=== PATIENT | female | born 1945 | race Asian ===

== ENCOUNTER 2016-03-05 09:04 | Outpatient (CLI) | payer MEDICARE ==
[2016-03-05] MEDS ORDERED: ALBUTEROL NEB 2.5 MG/3 ML INH ONE (09:31)
== END 2016-03-05 09:05 | disposition home or self-care (01) ==
DX: J44.9 Chronic obstructive pulmonary disease, unspecified (principal); R06.00 Dyspnea, unspecified
CPT/HCPCS: 94060; J7613

== ENCOUNTER 2016-03-07 11:33 | Outpatient (CLI) | payer MEDICARE | END 2016-03-07 11:34 | disposition home or self-care (01) | DX: Z12.2 Encounter for screening for malignant neoplasm of respiratory organs (principal); F17.210 Nicotine dependence, cigarettes, uncomplicated ==

== ENCOUNTER 2020-08-02 11:01 | Outpatient (CLI) | payer MEDICARE, OTHER ==
[2020-08-02] MEDS ORDERED: IOVERSOL 320 100 ML VIAL IVP ONE ×2 (11:52→12:38)
[2020-08-02 11:55] LABS: CALCIUM 9.9 mg/dL (8.5-10.3); CREATININE 1.2 mg/dL (0.4-1.0); POTASSIUM 4.5 mmol/L (3.5-5.0)
--- NOTE | 2020-08-02 12:03 | DEXA Report ---
PROCEDURE: Dexa Spine and/or Hip INDICATIONS: SMOKER,POST MENOPAUSAL,RENAL MASS TECHNIQUE: Dual energy x-ray absorptiometry (DXA) was performed on a [employer] System. Regions measur ed are the AP Spine, femoral neck, and if needed forearm. COMPARISON: None. FINDINGS: Lumbar Spine: Bone Mineral Density 1.337 g/cm/cm,T score 1.3. Left Hip: Bone Mineral Density 1.050 g/cm/cm,T score 0.3. Left Femoral Neck: Bone Mineral Density 0.909 g/cm/cm, T score -0.9. (T score greater or equal to -1.0: NORMAL) (T score from -1.1 to -2.4: OSTEOPENIA) (T score less than or equal to -2.5 to: OSTEOPOROSIS) Impression: Normal bone mineral density. Patients with diagnosis of osteoporosis or osteopenia should have regular bone mineral density assess ment. For those eligible for Medicare, routine testing is allowed once every 2 years. Testing frequ ency can be increased for patients who have rapidly progressing disease or for those who are receivin g medical therapy to restore bone mass. Reviewed by: Drew Parker MD on 08/02/2020 12:01 PM PDT Approved by: Drew Parker MD on 08/02/2020 12:01 PM PDT Station ID: [id number]
--- NOTE | 2020-08-02 15:19 | CT Report ---
PROCEDURE: Low Dose Lung Cancer Screen INDICATIONS: SMOKER,POST MENOPAUSAL,RENAL MASS TECHNIQUE: Noncontrast low-dose 5 mm thick sections acquired from the pulmonary apices to the posterior costophr enic angles. 7 mm thick coronal and sagittal MIP reformats were then acquired. For radiation dose r eduction, the following was used: automated exposure control, adjustment of mA and/or kV according t o patient size. COMPARISON: None. FINDINGS: Image quality: Excellent. Lungs and pleura: Mild emphysematous change. Moderate noncalcified biapical pleural plaquing. Obliqu e linear scarring anteromedially right upper lobe and at both lung bases posteriorly. No suspicious n odules or masses. No dense consolidations or pleural effusion. Mild bilateral lower lobe bronchial wa ll thickening. Mediastinum: Heart size is normal. No pericardial effusion. No mediastinal adenopathy by size crit eria. Thoracic aorta and central pulmonary arteries are normal in size. Esophagus is normal in leanne capo. No hiatal hernia. Bones and chest wall: No suspicious bony lesions. No vertebral body compression fractures. No axil beatriz or supraclavicular adenopathy by size criteria. The thyroid is present but not well seen given technique. Abdomen: Visualized upper abdomen solid organs and bowel loops appear normal in the absence of contr ast. IMPRESSION: 1. No suspicious lung nodules or masses. Lung RADS category 1, negative. XI #2. Mild emphysema and bi apical pleural plaquing. Reviewed by: Krystal Bettencourt MD on 08/02/2020 3:18 PM PDT Approved by: Krystal Bettencourt MD on 08/02/2020 3:18 PM PDT Station ID: [id number]
--- NOTE | 2020-08-02 15:34 | CT Report ---
PROCEDURE: ABDOMEN W/WO INDICATIONS: SMOKER,POST MENOPAUSAL,RENAL MASS CONTRAST: IV CONTRAST: Optiray 320 ml: 140 PO CONTRAST: *NO PO CONTRAST TECHNIQUE: Noncontrast 5 mm thick sections acquired from the diaphragms to the symphysis. 5 mm coronal and sagi ttal reformats were then performed. For radiation dose reduction, the following was used: automated exposure control, adjustment of mA and/or kV according to patient size. COMPARISON: 08/09/2014 FINDINGS: Image quality: Excellent. Lung bases: Lung bases are clear. Heart size is normal. Kidneys: Several cysts are present in each kidney. There are a few hyperdense lesions as well on non contrast imaging, specifically one arising from the posterior right mid pole measuring 3.3 cm in grea test diameter, and one arising from the left mid pole measuring 2.6 cm. Comparing pre and post contra st Hounsfield units, there is no significant internal enhancement of either one of these. 2 tiny hype rdense cysts arise from the upper pole of each kidney there is no significant enhancement of any of t he lesions. There are several other smaller cortical cysts throughout each kidney. There are parapelv ic cysts in the left kidney. No hydroureter involving the visible portions of the ureter. Solid organs: Liver and spleen are normal in size and enhancement. Gallbladder is normal. Biliary system is non dilated. Pancreas enhances normally. No adrenal nodules. Peritoneum and bowel: A debris filled duodenal diverticulum is present. Unenhanced bowel loops are no rmal in caliber and wall thickness. Diverticulosis of the distal sigmoid colon. No free fluid or air . Nodes and vessels: No retroperitoneal or mesenteric adenopathy by size criteria. Aorta and inferior vena cava are normal in size. Heavy coarse abdominal aortic calcification in the midportion. Miscellaneous: Small, narrow necked umbilical hernia. Bones: Degenerative disc height loss at L5-S1. No suspicious bony lesions. No vertebral body compre ssion fractures. IMPRESSION: 1. There are no suspicious solid renal masses. 2. There are numerous cysts in each kidney, some of which are hyperdense. These are likely proteinace ous or hemorrhagic. 3. Mid abdominal aortic calcification. Reviewed by: Krystal Bettencourt MD on 08/02/2020 3:33 PM PDT Approved by: Krystal Bettencourt MD on 08/02/2020 3:33 PM PDT Station ID: [id number]
== END 2020-08-02 11:02 | disposition home or self-care (01) ==
LOC: LAB 11:01
PROVIDERS: ATTEND Nurse Practitioner Family
DX: N28.89 Other specified disorders of kidney and ureter (principal); Z12.2 Encounter for screening for malignant neoplasm of respiratory organs; Z78.0 Asymptomatic menopausal state; J43.9 Emphysema, unspecified; J92.9 Pleural plaque without asbestos; F17.210 Nicotine dependence, cigarettes, uncomplicated; N28.1 Cyst of kidney, acquired; I70.0 Atherosclerosis of aorta
CPT/HCPCS: 36415; 71271; 74170; 77080; 80048; Q9967

== ENCOUNTER 2020-12-12 11:15 | Outpatient (CLI) | payer MEDICARE, OTHER ==
--- NOTE | 2020-12-12 12:08 | Ultrasound Report ---
PROCEDURE: Duplex Ext Veins Left INDICATIONS: SWELLING IN LEFT LOWER LEG TECHNIQUE: Real-time imaging, as well as color and pulse Doppler interrogation, were performed of the lower extr emity deep veins from the inguinal ligament to the popliteal fossa. COMPARISON: None. FINDINGS: The deep veins are normally compressible, and free of intraluminal thrombus. Color and pu lse Doppler demonstrate normal phasic intraluminal flow. There is normal augmentation response to di stal compression maneuver. IMPRESSION: No sonographic evidence of DVT. Reviewed by: Louie Thomas MD on 12/12/2020 12:07 PM PDT Approved by: Louie Thomas MD on 12/12/2020 12:07 PM PDT Station ID: [id number]
== END 2020-12-12 11:16 | disposition home or self-care (01) ==
LOC: DI 11:15
PROVIDERS: ATTEND Nurse Practitioner Family
DX: R22.42 Localized swelling, mass and lump, left lower limb (principal)

== ENCOUNTER 2021-03-14 14:24 | Outpatient (CLI) | payer MEDICARE, OTHER ==
[2021-03-14 20:08] LABS: BASOPHILS # (AUTO) 0.1 10^3/uL (0.0-0.1); BASOPHILS % (AUTO) 0.8 %; EOSINOPHILS # (AUTO) 0.5 10^3/uL (0.0-0.7); HCT - HEMATOCRIT 48.4 % (37.0-47.0); HGB - HEMOGLOBIN 15.9 g/dL (12.0-16.0); LYMPHOCYTES # (AUTO) 2.1 10^3/uL (1.5-3.5); LYMPHOCYTES % (AUTO) 19.4 %; MEAN CORPUSCULAR HEMOGLOBIN 31.4 pg (27.0-31.0); MEAN CORPUSCULAR HGB CONC 32.9 g/dL (32.0-36.0); MEAN CORPUSCULAR VOLUME 95.7 fL (81.0-99.0); MEAN PLATELET VOLUME 9.9 fL (7.9-10.8); MONOCYTES # (AUTO) 0.9 10^3/uL (0.0-1.0); MONOCYTES % (AUTO) 8.3 %; NEUTROPHILS # (AUTO) 7.1 10^3/uL (1.5-6.6); NEUTROPHILS % (AUTO) 66.1 %; PLT - PLATELET COUNT 318 10^3/uL (130-450); RED BLOOD COUNT 5.06 10^6/uL (4.20-5.40); RED CELL DISTRIBUTION WIDTH 14.1 % (12.0-15.0); WHITE BLOOD COUNT 10.7 x10^3/uL (4.8-10.8)
== END 2021-03-14 14:25 | disposition home or self-care (01) ==
LOC: LAB.S 14:24
PROVIDERS: ATTEND Nurse Practitioner Family
DX: D75.1 Secondary polycythemia (principal)
CPT/HCPCS: 36415; 85025

== ENCOUNTER 2021-04-12 13:15 | Outpatient (CLI) | payer MEDICARE, OTHER ==
[2021-04-12] MEDS ORDERED: ALBUTEROL 1 PUFF INH STA (14:26)
== END 2021-04-12 13:16 | disposition home or self-care (01) ==
LOC: RT 13:15
PROVIDERS: ATTEND Nurse Practitioner Family
DX: J44.9 Chronic obstructive pulmonary disease, unspecified (principal)
CPT/HCPCS: 94060

== ENCOUNTER 2021-04-15 12:53 | Outpatient (CLI) | payer MEDICARE, OTHER ==
--- NOTE | 2021-04-15 16:58 | MRI Report ---
PROCEDURE: Ankle LT W/O INDICATIONS: L ANKLE INJURY, INCREASED PAIN AND SWELLING TECHNIQUE: Noncontrast Magnetic Resonance Imaging (MRI) of the ankle/hindfoot was performed utilizing the follow ing sequences on a 3.0 Valeria Siemens MRI: sagittal T1 spin echo, sagittal STIR, axial PD fast spin ec ho, axial T2 fast spin echo with fat saturation, coronal T2 spin echo with fat saturation, and PD fas t spin echo with fat saturation. COMPARISON: None. Findings: Bones: No evidence of fracture, infiltration, or ischemia. Muscles: No evidence of muscular atrophy or edema. Anterior tibiofibular ligament: Intact. Posterior tibiofibular ligament: Intact. Calcaneofibular ligament: Intact. Talar dome: No significant abnormality. Anterior talofibular ligament: Intact. Posterior talofibular ligament: Intact. Deltoid ligament: Intact. Peroneal tendons: No evidence of tear or tenosynovitis. Tibialis posterior: No evidence of tear. Trace fluid surrounds the tendon, which may reflect mild ten osynovitis. Flexor digitorum: No evidence of tear or tenosynovitis. Flexor hallucis longus: No evidence of tear or tenosynovitis. Sinus Tarsi: No mass or fibrosis. Achilles tendon: Intact. Joint effusion: Small tibiotalar joint effusion. Plantar fascia: No evidence of tear or inflammation. Diffuse, reticulated T2 hyperintense signal in the subcutaneous fat, compatible with edema. IMPRESSION: 1. Mild tenosynovitis of the tibialis posterior. 2. Small tibiotalar joint effusion. 3. Diffuse edema. Reviewed by: Louie Thomas MD on 04/15/2021 4:56 PM PST Approved by: Louie Thomas MD on 04/15/2021 4:56 PM PST Station ID: [id number]
== END 2021-04-15 12:54 | disposition home or self-care (01) ==
LOC: DI 12:53
PROVIDERS: ATTEND Podiatrist
DX: S93.402A Sprain of unspecified ligament of left ankle, initial encounter (principal); M25.472 Effusion, left ankle; R26.2 Difficulty in walking, not elsewhere classified; M65.872 Other synovitis and tenosynovitis, left ankle and foot; R60.0 Localized edema

== ENCOUNTER 2021-08-16 10:48 | Outpatient (CLI) | payer MEDICARE, OTHER ==
--- NOTE | 2021-08-16 14:37 | Ultrasound Report ---
PROCEDURE: Abdomen Limited INDICATIONS: UMBILLICAL HERNIA TECHNIQUE: Real-time focused scanning was performed of the abdomen, with image documentation. COMPARISON: CT abdomen with and without, 08/02/2020. FINDINGS: The patient was scanned with and without Valsalva. There is a fat-containing umbilical darline ia measuring 3.9 x 2.0 cm. The neck of the hernia measures 1.4 cm. The hernia is partially reducible with manual compression. IMPRESSION: A fat-containing, partially reducible umbilical hernia. Reviewed by: Viktor Hill MD on 08/16/2021 2:36 PM PDT Approved by: Viktor Hill MD on 08/16/2021 2:36 PM PDT Station ID: [id number]
== END 2021-08-16 10:49 | disposition home or self-care (01) ==
LOC: DI 10:48
PROVIDERS: ATTEND Nurse Practitioner Family
DX: K42.9 Umbilical hernia without obstruction or gangrene (principal)

== ENCOUNTER 2021-11-08 14:09 | Outpatient (CLI) | payer MEDICARE, OTHER ==
--- NOTE | 2021-11-08 20:45 | Ultrasound Report ---
PROCEDURE: Retroperitoneal INDICATIONS: RENAL CYSTS TECHNIQUE: Real-time scanning was performed of the kidneys and bladder, with image documentation. COMPARISON: CT pulmonary angiogram 08/23/2021. CT abdomen pelvis 08/02/2020. FINDINGS: Kidneys: Right kidney measures 11.3 cm long; Right renal cortical thickness is 1 cm. Multiple cysts. Superior pole anechoic 2.8 x 2.8 x 2.6 cm. Superior/mid anechoic 4.3 x 2.5 x 2.3 cm. Inferior pole anechoic with thin septation 1.6 x 1.5 x 1.4 cm. Left kidney measures 9.6 cm long; left renal cortical thickness is 1.3 cm. Multiple cysts. Superior pole 1.5 x 1.3 x 1.3 cm. Interpolar anechoic with a thin septation 3.7 x 2.6 x 2.5 cm. Interpolar medial anechoic 1.8 x 1.5 x 1.4 cm. Bladder: Pre-void bladder volume is 125 mL. Post-void residual is 3 mL. Pre-void images demonstrat e no intraluminal masses or stones. On pre-void images, left ureteral jets are noted with color Dopp ler interrogation. (Of note, ureteral jets may not be detectable in up to 25% of cases due to insuff icient differences in specific gravity between ureteral and bladder urine). Right ureteral jet is no t seen. Miscellaneous: No free abdominal fluid. IMPRESSION: 1. Multiple bilateral renal cysts. A few of the cysts are mildly complicated. On the prior CT some of these cysts demonstrate increased density and are likely hemorrhagic/proteinaceous cyst. Renal protocol MRI with IV contrast for more definitive characterization. 2. No hydronephrosis. Reviewed by: Gregorio Jaime MD on 11/08/2021 8:43 PM PDT Approved by: Gregorio Jaime MD on 11/08/2021 8:43 PM PDT Station ID: [id number]
== END 2021-11-08 14:10 | disposition home or self-care (01) ==
LOC: DI 14:09
PROVIDERS: ATTEND Nurse Practitioner Family
DX: N28.1 Cyst of kidney, acquired (principal)

== ENCOUNTER 2021-12-30 11:55 | Outpatient (CLI) | payer MEDICARE, OTHER ==
[~2021-12-30 11:55] MED LIST: GADOBUTROL 15 MMOL/15 ML VIAL ONE
[2021-12-30 12:41] LABS: CALCIUM 9.6 mg/dL (8.5-10.3); CREATININE 1.4 mg/dL (0.4-1.0); POTASSIUM 4.1 mmol/L (3.5-5.0)
--- NOTE | 2021-12-30 16:41 | MRI Report ---
PROCEDURE: ABDOMEN W/WO INDICATIONS: RENAL CYSTS CONTRAST: 10.5ml gadavist TECHNIQUE: Coronal ultra fast SE, axial 2D spoiled GE in- and [id number]; axial breath-hold T2 fast SE. Dynam ic axial ultra fast GE during the administration of contrast; post-contrast coronal ultra fast GE or 2D spoiled GE with fat saturation from the hepatic dome to the iliac crests. Optional diffusion weig hted imaging and ADC may be performed. Postcontrast subtraction imaging was performed. COMPARISON: Ultrasound 11/08/[address] abdomen 08/02/2020 FINDINGS: Image quality: Excellent. Lung bases: No basal pleural effusions. Heart size is normal. Small hiatal hernia. Kidneys: Numerous bilateral renal cysts, cortical medullary, exophytic, and parapelvic. The largest a rising from the right kidney posteriorly measures 4.0 cm and demonstrates isointense T1 and hyperinte nse T2 signal. One of the largest in the left kidney is cortical medullary in the midpole measuring 3 .3 cm and contains a fine septation. An adjacent exophytic cyst in the left renal midpole posteriorly demonstrates hyperintense T1 and hypointense T2 signal. There are several smaller exophytic and part ially exophytic cysts in each kidney demonstrating varying degrees of T1 hyperintensity, many with hy perintensity layering dependently. There is no suspicious enhancement in any of these cysts and no so lid mass in either kidney. Solid organs: The liver is elongated in the right lobe consistent with a Norma's lobe morphology. T he liver margin is smooth. There are small thin-walled scattered T2 hyperintensities suggesting cysts , hemangiomas, or biliary hamartomas. No enhancing liver mass. The spleen is normal size and there are several new T1 and T2 hypointensities with some blooming ana fact. Gallbladder, biliary system, and adrenal glands are normal. Nodes and vessels: No retroperitoneal or mesenteric adenopathy by size criteria. Aorta and inferior vena cava are normal in size. Bowel and peritoneum: There is a prominent fluid containing, 4.5 cm duodenal diverticulum arising ad jacent to the ampulla. Small bowel is otherwise normal. No free fluid. Bones and soft tissues: Chronic narrow necked fat-containing umbilical hernia. Bone marrow is normal in overall signal. IMPRESSION: 1. Numerous bilateral renal cysts, many of which are hemorrhagic/proteinaceous. 2. No suspicious enhancing renal mass. Reviewed by: Krystal Bettencourt MD on 12/30/2021 4:39 PM PST Approved by: Krystal Bettencourt MD on 12/30/2021 4:39 PM PST Station ID: [id number]
[2021-12-30] MEDS ORDERED: GADOBUTROL 15 MMOL/15 ML VIAL IVP ONE (18:41)
== END 2021-12-30 11:56 | disposition home or self-care (01) ==
LOC: LAB 11:55
PROVIDERS: ATTEND Nurse Practitioner Family
DX: N28.1 Cyst of kidney, acquired (principal)
CPT/HCPCS: 36415; 74183; 80048; A9585

== ENCOUNTER 2022-06-25 11:26 | Outpatient (CLI) | payer MEDICARE ==
[2022-06-25 12:25] LABS: ALBUMIN 3.8 g/dL (3.2-5.5); CALCIUM 9.4 mg/dL (8.5-10.3); CREATININE 1.3 mg/dL (0.4-1.0); PHOSPHORUS 3.3 mg/dL (2.5-4.6); POTASSIUM 4.1 mmol/L (3.5-5.0)
[2022-06-25 12:54] LABS: CREATININE,URINE 80.9 mg/dL; PROTEIN/CREATININE RATIO,URINE 0.1 (<=0.2)
== END 2022-06-25 11:27 | disposition home or self-care (01) ==
LOC: LAB 11:26
PROVIDERS: ATTEND Internal Medicine Nephrology
DX: N18.32 Chronic kidney disease, stage 3b (principal)
CPT/HCPCS: 36415; 80069; 82306; 82570; 83970; 84156

== ENCOUNTER 2022-08-13 06:17 | Day surgery (SDC) | payer MEDICARE ==
[2022-08-13] MEDS ORDERED: LACTATED RINGERS 1,000 ML IV ONE (06:29)
--- NOTE | 2022-08-13 07:06 | ANESTHESIA ---
Pre-Anesthesia VS, & Labs - Diagnosis screening - Procedure colonoscopy Vital Signs: Temp Pulse Resp BP Pulse Ox O2 Flow Rate 36.0 C L 65 18 156/68 H 97 0 08/13/22 06:30 08/13/22 06:30 08/13/22 06:30 08/13/22 06:30 08/13/22 06:30 08/13/22 06:30 Height: 5 ft 8 in Weight (kg): 93.4 kg Body Mass Index: 31.3 BMI Classification: Obese - NPO >8 hours - Is Patient ?: No - Lab Results Lab results reviewed: Yes Home Medications and Allergies Home Medications: Ambulatory Orders Amiodarone [Pacerone] 1 tab PO DAILY 08/13/22 Apixaban [Eliquis] 1 tab PO DAILY 08/13/22 Atorvastatin Calcium 1 tab PO DAILY 08/13/22 Escitalopram Oxalate [Lexapro] 1 tab PO DAILY 08/13/22 Fluticasone/Umeclidin/Vilanter [Trelegy Ellipta 100-62.5-25] 1 puffs PO DAILY 08/13/22 dilTIAZem HCL [Diltiazem 24Hr ER (Xr)] 1 tab PO DAILY 08/13/22 Umeclidinium Brm/Vilanterol Tr [Anoro Ellipta 62.5-25 Mcg INH] 1 puffs INH DAILY 08/18/21 Amiodarone [Pacerone] 1 tab PO DAILY 08/13/22 Apixaban [Eliquis] 1 tab PO DAILY 08/13/22 Atorvastatin Calcium 1 tab PO DAILY 08/13/22 Escitalopram Oxalate [Lexapro] 1 tab PO DAILY 08/13/22 Fluticasone/Umeclidin/Vilanter [Trelegy Ellipta 100-62.5-25] 1 puffs PO DAILY 08/13/22 dilTIAZem HCL [Diltiazem 24Hr ER (Xr)] 1 tab PO DAILY 08/13/22 Allergies/Adverse Reactions: Allergies Allergy/AdvReac Type Severity Reaction Status Date / Time cephalexin Allergy Rash Verified 08/13/22 06:47 codeine AdvReac Nausea Verified 08/13/22 06:47 Anes History & Medical History - Anesthetic History Anesthesia Complications: reports: No previous complications Family history of Anesthesia Complications: Denies Family history of Malignant Hyperthermia: Denies - Medical History Cardiovascular: reports: None Pulmonary: reports: COPD, Sleep apnea Gastrointestinal: reports: None Urinary: reports: None 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) Musculoskeletal: reports: Osteoarthritis Endocrine/Autoimmune: reports: None Skin: reports: Other Smoking Status: Former smoker History of Cancer?: No - Surgical History General: reports: Colonoscopy Eyes Ears Nose Throat (EENT): reports: Tonsil/Adenoidectomy Exam General: Alert, Oriented x3, Cooperative Dental: Dentures full Upper, Dentures full Lower Mouth Openin Fingerbreadth Neck Mobility: Normal Mallampati classification: II Thyromental Distance: 4-6 cm Respiratory: Lungs clear, Normal breath sounds, Decreased breath sounds Cardiovascular: Regular rate Extremities: Other (slight LEFT residual weakness from) Neurological: Normal speech Mental/Cognitive Status: Alert/Oriented X3, Normal for patient Cognitive Status: Within normal limits Plan Anesthesia Type: Total IV Consent for Procedure(s) Verified and Reviewed: Yes Code Status: Attempt Resuscitation ASA classification: 3-Severe systemic disease Is this case an emergency?: No
[2022-08-13] MEDS ORDERED: PROPOFOL 500 MG/50 ML 500 MG/50 ML VIAL ONE (07:59)
[2022-08-13] MEDS ORDERED: LACTATED RINGERS 400 ML IV ONE (08:18)
[2022-08-13 08:33] VITALS: BP 137/64
--- NOTE | 2022-08-13 08:50 | ANESTHESIA POST OP EVALUATION ---
Anesthesia Post Eval - Post Anesthesia Eval Vitals: Last Vital Signs Temp 36.2 C L 08/13/22 08:31 Pulse 59 L 08/13/22 08:31 Resp 16 08/13/22 08:31 BP 137/64 H 08/13/22 08:31 Pulse Ox 96 08/13/22 08:31 O2 Flow Rate 0 08/13/22 06:30 CV Function Including HR & BP: Stable Pain Control: Satisfactory Nausea & Vomiting: Negative Mental Status: Baseline Respiratory Status: Airway Patent Hydration Status: Satisfactory Anesthesia Complications: None
== END 2022-08-13 06:18 | disposition home or self-care (01) ==
LOC: SDS 06:17
PROVIDERS: ATTEND Surgery
PROC: 0DBE8ZX Excision of Large Intestine, Via Natural or Artificial Opening Endoscopic, Diagnostic (ICD-10-PCS; principal; 2022-08-13 07:30)
DX: Z12.11 Encounter for screening for malignant neoplasm of colon (principal); K63.5 Polyp of colon; D17.5 Benign lipomatous neoplasm of intra-abdominal organs; K57.30 Diverticulosis of large intestine without perforation or abscess without bleeding; J44.9 Chronic obstructive pulmonary disease, unspecified; F17.200 Nicotine dependence, unspecified, uncomplicated
CPT/HCPCS: 45380; J7120

== ENCOUNTER 2022-10-24 12:58 | Outpatient (CLI) | payer MEDICARE ==
[2022-10-24 13:32] LABS: ALBUMIN 4.3 g/dL (3.2-5.5); CALCIUM 9.8 mg/dL (8.5-10.3); CREATININE 1.5 mg/dL (0.6-1.3); PHOSPHORUS 3.4 mg/dL (2.5-5.0); POTASSIUM 4.9 mmol/L (3.5-4.5)
[2022-10-24 14:00] LABS: CREATININE,URINE 148.7 mg/dL; PROTEIN/CREATININE RATIO,URINE 0.2 (<=0.2)
== END 2022-10-24 12:59 | disposition home or self-care (01) ==
LOC: LAB 12:58
PROVIDERS: ATTEND Internal Medicine Nephrology
DX: N18.32 Chronic kidney disease, stage 3b (principal)
CPT/HCPCS: 36415; 80069; 82306; 82570; 83970; 84156

== ENCOUNTER 2023-04-16 10:36 | Outpatient (CLI) | payer MEDICARE ==
[2023-04-16 11:12] LABS: ALBUMIN 4.1 g/dL (3.2-5.5); CALCIUM 9.7 mg/dL (8.5-10.3); CREATININE 1.3 mg/dL (0.6-1.3); PHOSPHORUS 3.7 mg/dL (2.5-5.0); POTASSIUM 4.1 mmol/L (3.5-4.5)
[2023-04-16 11:13] LABS: CREATININE,URINE 111.2 mg/dL; PROTEIN/CREATININE RATIO,URINE 0.2 (<=0.2)
== END 2023-04-16 10:37 | disposition home or self-care (01) ==
LOC: LAB 10:36
PROVIDERS: ATTEND Internal Medicine Nephrology
DX: N18.32 Chronic kidney disease, stage 3b (principal)
CPT/HCPCS: 36415; 80069; 82306; 82570; 84156